=== PATIENT | female | born 1955 | race Caucasian/White ===

== ENCOUNTER → 2019-02-22 10:31 | Outpatient (CLI) | payer OTHER, SELFPAY ==
--- NOTE | 2019-02-22 | DI.US.S_ITS ---
PROCEDURE: US THYROID INDICATIONS: FOREIGN BODY SWALLOWED SENSATION TECHNIQUE: Real-time scanning was performed of the thyroid gland, with image documentation. COMPARISON: None. FINDINGS: Right: Thyroid lobe measures 3.9 x 1.9 x 1.4 cm, and is homogeneous in echotexture. Left: Thyroid lobe measures 4.1 x 1.5 x 1.6 cm, and is homogenous in echotexture. Isthmus: 3.0 mm thick. IMPRESSION: Normal thyroid. Dictated by: Hussain VALLES Interpreted: Dimas Ba MD on 02/22/2019 at 12:08 Approved by: Dimas Ba M.D. on 02/22/2019 at 14:01
== END ==
PROVIDERS: PCP Physician Assistant Medical; Visit Provider Physician Assistant Medical
DX: R09.89 Other specified symptoms and signs involving the circulatory and respiratory systems (principal)
CPT/HCPCS: 76536